=== PATIENT | male | born 1990 | race Caucasian/White ===

== ENCOUNTER 2020-11-01 03:47 | Emergency (ER) | payer OTHER ==
[~2020-11-01] VITALS: Ht 170.2 cm; Wt 99.8 kg
[~2020-11-01 03:47] MED LIST: CEPH500 PO; CODACE30 PO; IBUP600 PO; OXYACE5T PO; Percocet 5-3251 EACH PO; RXCODACET PO; RXOXYACE PO
[2020-11-01 04:27] LABS: BASOPHILS ABSOLUTE AUTO 0.02 K/mm3 (0.00-0.23); BASOPHILS PERCENT AUTO 0 % (0-2); EOSINOPHILS ABSOLUTE AUTO 0.01 K/mm3 (0.00-0.68); EOSINOPHILS PERCENT AUTO 0 % (0-6); Hematocrit 46.5 % (37.0-53.0); Hemoglobin 16.1 g/dL (13.5-17.5); IMMATURE GRAN ABSOLUTE AUTO 0.06 K/mm3 (0.00-0.10); IMMATURE GRAN PERCENT AUTO 0 % (0-1); LYMPHOCYTES ABSOLUTE AUTO 0.52 K/mm3 (0.84-5.20); LYMPHOCYTES PERCENT AUTO 4 % (21-46); MONOCYTES ABSOLUTE AUTO 1.02 K/mm3 (0.16-1.47); MONOCYTES PERCENT AUTO 7 % (4-13); Mean Corpuscular HGB 31.2 pg (26.0-34.0); Mean Corpuscular HGB Conc 34.6 g/dL (31.5-36.5); Mean Corpuscular Volume 90 fL (80-100); NEUTROPHILS ABSOLUTE AUTO 12.95 K/mm3 (1.96-9.15); NEUTROPHILS PERCENT AUTO 89 % (41-73); RDW Coefficient Variation 11.6 % (11.7-14.2); RDW Standard Deviation 38.5 fL (35.1-46.3); Red Blood Cell Count 5.16 M/mm3 (4.30-5.90); White Blood Cell Count 14.58 K/mm3 (4.00-11.30)
[2020-11-01 04:32] LABS: Mean Platelet Volume 10.5 fL (9.1-12.4); Platelet Count 258 K/mm3 (150-400)
[2020-11-01 04:44] LABS: Alanine Aminotransfer (ALT/SGP 78 U/L (12-78); Albumin, Blood 4.5 g/dL (3.4-5.0); Albumin/Globulin Ratio 1.3 (0.8-1.8); Alk Phos 67 U/L (50-136); Anion Gap 7 mmol/L (6-16); Aspartate Aminotrans (AST/SGOT 95 U/L (12-37); Bilirubin, Total 1.2 mg/dL (0.1-1.0); Blood Urea Nitrogen 13 mg/dL (8-24); Bun/Creatinine Ratio 15.3 (12.0-20.0); CO2, Blood 27 mmol/L (21-32); Calcium, Blood 8.8 mg/dL (8.5-10.1); Chloride, Blood 102 mmol/L (98-108); Creatinine, Blood 0.85 mg/dL (0.60-1.20); Globulin, Blood 3.4 g/dL (2.2-4.0); Glomerular Filtration Rate >60 (60-); Glucose, Blood 133 mg/dL (70-99); Potassium, Blood 3.6 mmol/L (3.5-5.5); Sodium, Blood 136 mmol/L (136-145); Total Protein, Blood 7.9 g/dL (6.4-8.2)
[2020-11-01 06:46] LABS: U Amphetamine Screen Not Detected; U Barbituate Screen Not Detected; U Benzodiazapine Screen Not Detected; U Buprenorphine Screen Not Detected; U Cannabinoids Screen DETECTED; U Cocaine Screen Not Detected; U Methadone Screen Not Detected; U Methamphetamine Screen Not Detected; U Opiates Screen Not Detected; U Oxycodone Screen Not Detected; U Phencyclidine Screen Not Detected; U Propoxyphene Screen Not Detected
[2020-11-01] MEDS ORDERED: LEVE500 PO (09:28)
== END 2020-11-01 09:45 | disposition home or self-care (01) ==
LOC: ER 03:47
PROVIDERS: Emergency Medicine
DX: R56.9 Unspecified convulsions (principal); S00.83XA Contusion of other part of head, initial encounter; S00.31XA Abrasion of nose, initial encounter; S80.812A Abrasion, left lower leg, initial encounter; S80.811A Abrasion, right lower leg, initial encounter; V89.2XXA Person injured in unspecified motor-vehicle accident, traffic, initial encounter
CPT/HCPCS: 70450; 70551; 80053; 82947; 85025; 93005; 93010; 96365; 96375; 99285-25; J1953; J2060; J7030

== ENCOUNTER 2023-09-23 23:46 | Emergency (ER) | payer OTHER ==
[~2023-09-23] VITALS: Ht 175.3 cm; Wt 99.3 kg
[~2023-09-23 23:46] MED LIST changes: +LEVE500 PO
[2023-09-24 00:17] VITALS: BP 151/101
[2023-09-24] MEDS ORDERED: RX Prepack 6 Tabs Oxycodone 5mg UD ONE (01:00)
== END 2023-09-24 01:15 | disposition home or self-care (01) ==
LOC: ER 23:46
DX: S82.831A Other fracture of upper and lower end of right fibula, initial encounter for closed fracture (principal); X50.1XXA Overexertion from prolonged static or awkward postures, initial encounter
CPT/HCPCS: 29515; 73610; 99283-25; A9270